=== PATIENT | male | born 1960 | race Caucasian/White ===

== ENCOUNTER → 2016-06-06 | Outpatient (CLI) | payer OTHER ==
[2016-06-06 16:48] LABS: CH 29.5; CHCM 33.5; HCT 46.3 % (39.0-53.0); HDW 2.82; HGB 15.3 gm/dL (13.0-17.5); MCH 29.3 pg (25.0-35.0); MCV 88.7 fL (80.0-100.0); Mean Platelet Volume 8.2; RBC 5.21 m/uL (4.30-5.90); RDW 13.8 % (11.5-15.5)
[2016-06-06 16:56] LABS: Anion Gap 10 mmol/L; Blood Urea Nitrogen 22 mg/dL (9-20); Carbon Dioxide 28 mmol/L (22-30); Chloride 104 mmol/L (98-107); Non-African American GFR(MDRD) >60 (>60 ml/min/1.73 sqM); Potassium 4.5 mmol/L (3.5-5.1); Sodium 142 mmol/L (137-145)
== END | disposition home or self-care (01) ==
LOC: LABPAT 16:08
PROVIDERS: ATTEND Internal Medicine Cardiovascular Disease
DX: Z01.812 Encounter for preprocedural laboratory examination (principal); I48.1 Persistent atrial fibrillation
CPT/HCPCS: 80051; 82565; 84520; 85027

== ENCOUNTER 2016-06-13 06:25 | Day surgery (SDC) | payer OTHER ==
[2016-06-10 11:27] VITALS: BMI 41.4
[2016-06-13] MEDS ORDERED: LACTATED RINGERS 1,000 ML IV SCH ×2 (06:28→17:58)
[2016-06-13 07:20] LABS: INR 2.6 (<1.1)
[2016-06-13] MEDS ORDERED: ACETAMINOPHEN TAB 325 MG TAB PO PRN (07:58)
--- NOTE | 2016-06-13 08:02 | P.PCN ---
Date of Procedure: 06/13/16 Preoperative Diagnosis: Atrial fibrillation Postoperative Diagnosis: The same Procedure(s) Performed: Cardioversion Description of Procedure: This 54-year-old gentleman with history of hypertension was recently diagnosed to have atrial fibrillation. Patient was adequately anticoagulated and was brought in for elective cardioversion. Patient was prepped and draped in the usual fashion. He was given IV sedation by department of anesthesia. Patient was given shocks of 300 J followed by 360 J 2 with synchronized shocks. Patient failed to convert to sinus rhythm. Patient is being admitted to the hospital. He is going to be started on record 150 mg by mouth twice a day. Repeat cardioversion to be scheduled tomorrow a.m. Unsuccessful attempt at cardioversion.
[2016-06-13] MEDS ORDERED: SODIUM CHLORIDE 0.9% 1,000 ML IV ONE (08:32)
[2016-06-13] MEDS: FLECAINIDE 50 MG TAB PO SCH ×2 (09:29→20:18)
[2016-06-13] MEDS: SODIUM CHLORIDE 0.9% 1,000 ML IV SCH (09:31)
[2016-06-13] MEDS: METOPROLOL TARTRATE 25 MG TAB PO SCH ×2 (09:32→20:18)
[2016-06-13] MEDS ORDERED: MIDAZOLAM 2 MG/2 ML VIAL IV PRN (17:58)
[2016-06-13] MEDS ORDERED: DEXAMETHASONE SOD PHOSPHATE 10 MG/ML 1 ML VIAL IV ONE (17:58)
[2016-06-13] MEDS ORDERED: ONDANSETRON 4 MG/2 ML VIAL IVP ONE (17:58)
[2016-06-13] MEDS ORDERED: HYDROmorphone 1 MG/ML 1 ML SYRINGE IVP PRN (17:58)
[2016-06-13] MEDS ORDERED: SCOPOLAMINE 1.5MG/72HR PATCH TRANSDERM ONE (17:58)
[2016-06-13] MEDS ORDERED: WARFARIN 10 MG TAB PO SCH (18:00)
[2016-06-13] MEDS ORDERED: ATORVASTATIN 10 MG TAB PO SCH (21:00)
[2016-06-14 06:51] LABS: INR 3.2 (<1.1); Prothrombin Time 30.8 sec (9.0-12.0)
[2016-06-14] MEDS ORDERED: LIDOCAINE 1% INJ 10MG/ML (20 ML MDV) ONE (08:10)
[2016-06-14] MEDS ORDERED: PROPOFOL 10 MG/ML 20 ML VIAL IV ONE (08:10)
[2016-06-14] MEDS ORDERED: IV FLUID CONTINUATION 1,000 ML IV ONE ×2 (08:12→08:21)
--- NOTE | 2016-06-14 08:18 | P.PCN ---
Date of Procedure: 06/14/16 Preoperative Diagnosis: Persistent atrial fibrillation Postoperative Diagnosis: The same Procedure(s) Performed: Cardioversion Description of Procedure: This 55-year-old gentleman with history of persistent atrial fibrillation was brought in for cardioversion as an outpatient yesterday. Attempts at cardioversion with the shocks was unsuccessful yesterday. Patient was put on flecainide 150 twice a day and is brought in for repeat attempt at cardioversion. Patient was prepped and draped in the usual fashion. He was given IV sedation by department of anesthesia. A single a shock of 300 J was applied without success. Patient remained in atrial fibrillation. At this point it was decided to abandon the procedure Final impression: Unsuccessful attempt at cardioversion Plan. Patient will be continued on current medical therapy. Continue anticoagulation. Follow-up in the office in one week.
[2016-06-14] MEDS: FLECAINIDE 50 MG TAB PO SCH (09:01)
[2016-06-14] MEDS: METOPROLOL TARTRATE 25 MG TAB PO SCH (09:01)
[2016-06-14 11:55] VITALS: BP 127/76; PULSE 46; RESP 16; TEMP 97.5
[2016-06-14] MEDS: SODIUM CHLORIDE 0.9% 1,000 ML IV SCH (12:13)
[2016-06-14] MEDS ORDERED: WARFARIN 7.5 MG TAB PO SCH (18:00)
== END 2016-06-14 12:38 | disposition home or self-care (01) ==
LOC: CATHCVL 06:25 → 3OBS 07:53 → CATHCVL 06-14 12:38
PROVIDERS: ATTEND Internal Medicine Cardiovascular Disease
DX: I48.1 Persistent atrial fibrillation (principal); E78.5 Hyperlipidemia, unspecified; I10 Essential (primary) hypertension; E78.00 Pure hypercholesterolemia, unspecified; I42.9 Cardiomyopathy, unspecified; Z79.01 Long term (current) use of anticoagulants; Z79.899 Other long term (current) drug therapy; Z91.013 Allergy to seafood
CPT/HCPCS: 92960 ×2; 85610 ×2; J2001; J2704; 99152

== ENCOUNTER → 2016-08-14 | Outpatient (CLI) | payer OTHER ==
--- NOTE | 2016-08-14 18:29 | US ---
EXAMINATION TYPE: US kidneys/renal and bladder DATE OF EXAM: 08/14/2016 6:18 PM COMPARISON: NONE CLINICAL HISTORY: R31.9 Hematuria. EXAM MEASUREMENTS: Right Kidney: 13.2 x 6.5 x 6.1 cm Left Kidney: 13.3 x 5.8 x 5.7 cm Post Void Residual Volume: 9.0 mL Right Kidney: No hydronephrosis or masses seen Left Kidney: No hydronephrosis or masses seen Bladder: Bladder wall appears thickened and measures 0.5 cm Bilateral Jets seen: Yes Normal Post Void Residual: Yes There is no evidence for hydronephrosis at this point in time. No nephrolithiasis is seen. No kristal s are identified. The urinary bladder is anechoic. Bilateral ureteral jets are seen. IMPRESSION: No evidence of renal mass or obstruction. Satisfactory bladder emptying. Urinary bladder wall is prom inent but could relate to nonspecific mild cystitis.
== END | disposition home or self-care (01) ==
LOC: RADUSMAIN 17:52
PROVIDERS: ATTEND Internal Medicine
DX: R31.9 Hematuria, unspecified (principal)
CPT/HCPCS: 76770

== ENCOUNTER → 2017-11-01 | Outpatient (CLI) | payer OTHER | END | disposition home or self-care (01) | LOC: RADMRIMAIN 10:17 | PROVIDERS: ATTEND Orthopaedic Surgery | DX: Z53.9 Procedure and treatment not carried out, unspecified reason (principal) ==

== ENCOUNTER → 2018-01-02 | Outpatient (CLI) | payer OTHER ==
[2018-01-02 09:33] LABS: Appearance,Urine Clear (Clear); Bilirubin,Urine Negative (Negative); Blood,Urine Moderate (Negative); Color,Urine Yellow; Glucose,Urine (UA) Negative (Negative); Ketones,Urine Negative (Negative); Leukocyte Esterase,Urine Negative (Negative); Mucus,Urine Rare /hpf; Nitrite,Urine Negative (Negative); Protein,Urine Trace (Negative); RBC,Urine <1 /hpf (0-5); Specific Gravity,Urine 1.017 (1.001-1.035); Squamous Epithelial Cell,Urine <1 /hpf (0-4); Urobilinogen,Urine <2.0 mg/dL (<2.0); WBC,Urine <1 /hpf (0-5)
[2018-01-02 09:46] LABS: HCT 47.1 % (39.0-53.0); HGB 14.8 gm/dL (13.0-17.5); MCH 28.1 pg (25.0-35.0); MCHC 31.5 g/dL (31.0-37.0); MCV 89.4 fL (80.0-100.0); Platelet Count 268 k/uL (150-450); RBC 5.27 m/uL (4.30-5.90); RDW 13.5 % (11.5-15.5); WBC 6.3 k/uL (3.8-10.6)
[2018-01-02 09:57] LABS: INR 2.1 (<1.2); Partial Thromboplastin Time 26.6 sec (22.0-30.0); Prothrombin Time 18.7 sec (9.0-12.0)
[2018-01-02 10:54] LABS: ALT 37 U/L (21-72); AST 31 U/L (17-59); Albumin 4.2 g/dL (3.5-5.0); Alkaline Phosphatase 58 U/L (38-126); Anion Gap 9 mmol/L; Blood Urea Nitrogen 19 mg/dL (9-20); Calcium 9.2 mg/dL (8.4-10.2); Carbon Dioxide 27 mmol/L (22-30); Chloride 104 mmol/L (98-107); Glucose 148 mg/dL (74-99); Potassium 4.9 mmol/L (3.5-5.1); Sodium 140 mmol/L (137-145); Total Bilirubin 0.5 mg/dL (0.2-1.3); Total Protein 7.1 g/dL (6.3-8.2)
== END | disposition home or self-care (01) ==
LOC: LABPAT 08:31
PROVIDERS: ATTEND Orthopaedic Surgery
DX: Z01.812 Encounter for preprocedural laboratory examination (principal)
CPT/HCPCS: 36415; 80053; 81001; 85027; 85610; 85730; 86850; 86900; 86901; 87070; 93005

== ENCOUNTER 2018-01-13 05:41 | Inpatient (IN) | payer OTHER ==
[2018-01-05 09:08] VITALS: BMI 41.0
[~2018-01-13 05:41] MED LIST: ACETAMINOPHEN TAB 500 MG TAB PO ONE; DEXAMETHASONE SOD PHOSPHATE 10 MG/ML 1 ML VIAL IV ONE; LIDOCAINE 1% 20 ML VIAL (10MG/ML) FOR IV START INTRADERMA PRN; MELOXICAM 7.5 MG TAB PO ONE; MIDAZOLAM 2 MG/2 ML VIAL IV PRN; ONDANSETRON 4 MG/2 ML VIAL IVP ONE; TRANEXAMIC ACID 1,000 MG in SODIUM CHLORIDE 0.9% 50 ML IVPB ONE; fentaNYL (PF) 50 MCG/ML 2 ML AMP IV PRN
[2018-01-13] MEDS ORDERED: ROPIVACAINE 246.25 MG, EPINEPHrine 0.5 MG, KETOROLAC 30 MG, cloNIDine HCL/PF 80 MCG, WA... MISCELLANE ONE ×5 (05:55)
[2018-01-13 06:31] LABS: Glucose,Whole Blood 168 mg/dL (75-99)
[2018-01-13] MEDS: LACTATED RINGERS 1,000 ML IV SCH (06:32)
[2018-01-13] MEDS ORDERED: MAGNESIUM HYDROXIDE 2,400 MG/10 ML CUP PO PRN (07:00)
[2018-01-13] MEDS ORDERED: HYDROmorphone 1 MG/ML 1 ML SYRINGE IVP PRN ×3 (07:00)
[2018-01-13] MEDS ORDERED: DIAZEPAM 5 MG TAB PO PRN ×2 (07:00)
[2018-01-13] MEDS ORDERED: NALOXONE 0.4 MG/ML 1 ML VIAL IV PRN (07:00)
[2018-01-13] MEDS ORDERED: HYDROcodone/APAP 5-325MG 1 EACH TAB PO PRN (07:00)
[2018-01-13] MEDS ORDERED: ONDANSETRON 4 MG/2 ML VIAL IVP PRN (07:00)
[2018-01-13 07:05] LABS: INR 1.1 (<1.2); Prothrombin Time 10.5 sec (9.0-12.0)
[2018-01-13] MEDS ORDERED: PHENYLEPHRINE-0.9% NACL SYG 1 MG/10 ML SYRINGE ONE (07:08)
[2018-01-13] MEDS ORDERED: SODIUM CHLORIDE 0.9% 100 ML BAG ONE (07:08)
[2018-01-13] MEDS ORDERED: fentaNYL (PF) 50 MCG/ML 2 ML AMP ONE (07:08)
[2018-01-13] MEDS ORDERED: TRANEXAMIC ACID 1,000 MG/10 ML VIAL ONE (07:08)
[2018-01-13] MEDS ORDERED: ceFAZolin 3,000 MG in SODIUM CHLORIDE 0.9% IRRIGATIO 3,000 ML IRRIGATION ONE (07:08)
[2018-01-13] MEDS ORDERED: diphenhydrAMINE 50 MG/ML 1 ML VIAL ONE (07:08)
[2018-01-13] MEDS ORDERED: MIDAZOLAM 2 MG/2 ML VIAL ONE (07:08)
[2018-01-13] MEDS ORDERED: ceFAZolin 3 GM in SODIUM CHLORIDE 0.9% 100 ML IVPB SCH (08:00)
[2018-01-13] MEDS ORDERED: LACTATED RINGERS 1,000 ML IV ONE (09:08)
--- NOTE | 2018-01-13 09:25 | P.OP ---
Date of Procedure: 01/13/18 Preoperative Diagnosis: Avascular necrosis left hip Postoperative Diagnosis: Avascular necrosis left hip Procedure(s) Performed: Left total hip arthroplasty with a direct anterior approach Implants: Ochoa and nephew Polarstem size 8 standard Ochoa [employer] Nephew R3, 3 hole acetabular shell, 56 mm [employer]choa [employer]hew reflection 6.5 mm cancellus screw, 20 mm 2 [employer]cho[employer]hew R3, XLPE 20 acetabular liner [employer]choa [employer] Nephew Oxinium femoral head 36 m, +0 All components were press-fit. The articulation is Oxinium on polyethylene. Anesthesia: spinal Surgeon: Chetan Jacinto Director Loan #1: Jess Cheung Estimated Blood Loss (ml): 150 (68 mL returned with Cell Saver) Pathology: other (Femoral head) Condition: stable Disposition: PACU Indications for Procedure: After failure of conservative treatment we discussed the surgical and nonsurgical treatment options at length. Patient wishes to proceed with a total hip arthroplasty with a direct anterior approach. Complications specific to this procedure were discussed at length, including but not limited to infection, leg length discrepancy, dislocation, and nerve injury. Patient is aware of all these complications and informed consent was obtained Operative Findings: Operative findings are consistent with severe avascular necrosis of the left hip Description of Procedure: Patient was seen and evaluated in the preoperative area, consent was reviewed, and the surgical site was marked with a skin marker. Patient was then brought to the operating room and given prophylactic antibiotics intravenously. 1 g of Tranexamic acid was also given. A spinal anesthetic was administered by the anesthesia department. The patient was then placed on the Umbarger table with the bony prominences well-padded. The hip area was then prepped and draped in usual sterile fashion. A universal timeout was then performed, which confirmed the patient's name, surgical site, ALLERGIES, and procedure being performed. Next the incision site was located at 1 cm distal and 1 cm lateral to the anterior superior iliac spine. The skin and subcutaneous tissues were sharply incised. Incision was carefully dissected down to the fascia overlying the tensor fascia kavya muscle. This fascia was then incised in line with the incision. Next, using blunt finger dissection, the tensor fascia kavya muscle was dissected off its investing fascia. The muscle was then carefully retracted laterally with a cobra retractor over the lateral neck of the femur. Next, the circumflex vessels were identified and cauterized using the AquaMantis device. The anterior hip capsule was then exposed. The capsule was then opened and an inverted T fashion. Cobra retractors were then placed intracapsularly. The proximal femur was then visualized. The femoral neck was then osteotomized appropriate level above the lesser trochanter. Small amount of traction was placed with the Umbarger table. A small wedge of bone was then removed from the remaining femoral head. Next, using a corkscrew femoral head was easily removed from the acetabulum. On gross visual inspection, the femoral head had complete loss of articular cartilage in multiple periarticular osteophytes. Attention was then turned to the acetabulum. the acetabulum was exposed and any remaining labrum was excised. Sequential reaming of the acetabulum was performed using fluoroscopic guidance. When the appropriate size was reached, a trial was then placed. The position and fit of the trial was checked with fluoroscopy. The trial was then removed. Then, using fluoroscopic guidance, the final implant was impacted at 20 of anteversion and 40 of abduction, and fully seated in the acetabulum. 2 screws were then placed in the acetabulum. Again fluoroscopy was used to check position of the screws. Next, the liner was then impacted, with a 20 elevated liner located in the anterior superior quadrant. Component locking was confirmed. Attention was then directed to the femur. With the aid of the Umbarger table, the femur was externally rotated to approximately 130, extended, and abducted under the opposite leg. A side hook was then placed under the proximal femur, and the side hook elevator was used to elevate the proximal femur. Retractors were then placed. A capsular release was performed, as well as a release of the conjoined tendon, which afforded excellent visualization of the proximal femur. Next, a box osteotome was used to lateralize the proximal femur. A hand iii cutter was then used to locate the femoral canal. Sequential broaching was then performed with appropriate size which afforded excellent fixation in the proximal femur. A trial was then placed with appropriate head and neck, and the hip was gently reduced with the aid of the Umbarger table. Fluoroscopy was then used to check position of the components, as well as to ensure equal leg lengths. The hip was then gently dislocated and the trials were then removed. Final implants were then impacted and the hip was again reduced. Final fluoroscopic x-rays confirmed that the components were in anatomic position, as well as equal leg lengths. The hip was also taken through range of motion, and found to be stable. The hip was then copiously irrigated with antibiotic solution with pulsatile lavage. The hip was then irrigated with Irrisept solution. The soft tissues were then injected with a ropivacaine solution, which consisted of 246.25 mg of ropivacaine, 0.5 mg of epinephrine, 30 mg of Toradol, 80 g of clonidine, and 48.45 mL of sterile water, for a total of 100 mL of fluid injected. A second dose of 1 g of Tranexamic acid was also given. the fascia was then closed with 2-0 strata fix suture. The subcutaneous tissue was closed with 3-0 Vicryl. The subcuticular tissue was closed with 3-0 strata fix suture. The skin was then closed with Dermabond glue and a sterile silver dressing. The patient was then transferred to the recovery room in stable condition. The assistant passenger locomotive engineer MEGHAN Rosario was required due to the complexity of surgery, and the need for skilled patient services assistant for positioning, draping, exposure, retraction, and closure of the wound.
[2018-01-13 09:41] LABS: Glucose,Whole Blood 176 mg/dL (75-99)
--- NOTE | 2018-01-13 09:49 | XR ---
EXAMINATION TYPE: XR Hip Limited LT DATE OF EXAM: 01/13/2018 COMPARISON: None HISTORY: Postop hip replacement TECHNIQUE: AP left hip FINDINGS: Femoral component and acetabular component placed. No acute fractures are evident. IMPRESSION: 1. No fracture post left hip replacement.
--- NOTE | 2018-01-13 10:04 | FL ---
Fluoroscopy INDICATION: Pain FINDINGS: Fluoroscopy time: 1 minute 29 seconds. Images obtained: 3. IMPRESSIONS: 1. Documentation of fluoroscopy.
[2018-01-13] MEDS: HYDROcodone/APAP 5-325MG 1 EACH TAB PO PRN ×3 (10:58→23:23)
[2018-01-13] MEDS: SODIUM CHLORIDE 0.9% 1,000 ML IV SCH ×2 (11:17→21:22)
[2018-01-13 12:07] LABS: Glucose,Whole Blood 216 mg/dL (75-99)
[2018-01-13] MEDS ORDERED: INSULIN ASPART 100 UNIT/ML 1 ML 10 ML VIAL SQ ONE (14:31)
[2018-01-13 14:38] LABS: Glucose,Whole Blood 257 mg/dL (75-99)
[2018-01-13] MEDS: metFORMIN 500 MG TAB PO SCH (15:20)
--- NOTE | 2018-01-13 16:27 | CONS ---
CONSULTATION REASON FOR CONSULTATION: Advice regarding diabetes mellitus and other medical issues, requested by Dr. Jacinto. HISTORY OF PRESENT ILLNESS: This 57-year-old gentleman with a past medical history of atrial fibrillation, history of diabetes mellitus, hypertension, hyperlipidemia, myocardial infarction, history of mitral valve prolapse, DJD, history of pneumonia, underwent left total hip arthroplasty with a direct anterior approach for avascular necrosis of the left hip. The patient is being closely monitored. Blood sugars is being also monitored at this time. Blood sugars are 168, 176 and 216. There is no history of any fever or rigors, no history of headache, loss of consciousness, seizures at this time. The patient is followed by Dr. Mello in the outpatient setting. PAST MEDICAL HISTORY: 1. Atrial fibrillation. 2. Diabetes. 3. Hypertension. 4. Hyperlipidemia. 5. History of myocardial infarction. 6. Mitral valve prolapse. 7. DJD. MEDICATIONS PRIOR TO ADMISSION: 1. Coumadin 10 mg p.o. Friday, Friday, . 2. Coumadin 7.5 mg Friday, Friday, Friday, Friday. 3. Glucophage 500 mg each morning. 4. [place]-3 fatty acids 1 p.o. daily. 5. Lopressor 25 mg p.o. b.i.d. 6. Motrin 1600 mg p.o. daily p.r.n. 7. Lipitor 20 mg at bedtime. ALLERGIES: SHELLFISH. FAMILY HISTORY: History of cancer in the family. SOCIAL HISTORY: No history of smoking. Occasional alcohol intake. REVIEW OF SYSTEMS: ENT: No diminished hearing. No diminished vision. CARDIOVASCULAR SYSTEM: No angina, palpitations. RESPIRATORY SYSTEM: As mentioned earlier. GI: As mentioned earlier. : No dysuria or retention. NERVOUS SYSTEM: No numbness, weakness. ALLERGY/IMMUNOLOGY: No asthma, hayfever. MUSCULOSKELETAL: As mentioned earlier. HEMATOLOGY/ONCOLOGY: No history of anemia. ENDOCRINE: Diabetes mellitus. CONSTITUTIONAL: As mentioned earlier. DERMATOLOGY: Negative. RHEUMATOLOGY: Negative. PSYCHIATRY: As mentioned earlier. PHYSICAL EXAMINATION: Alert and oriented x3. Pulse is 59, blood pressure 160/60, respiration 20, temperature normal, pulse ox 97% on room air. HEENT: Conjunctivae normal. Oral mucosa moist. NECK: No jugular venous distention. No carotid bruit. No lymph node enlargement. CARDIOVASCULAR SYSTEM: S1, S2 muffled. RESPIRATORY SYSTEM: Breath sounds diminished at the bases. No rhonchi. No crackles. ABDOMEN: Soft, non-tender. No mass palpable. LEGS: Status post right hip surgery. NERVOUS SYSTEM: Higher functions as mentioned earlier. Moves all 4 limbs. No focal motor or sensory deficit. LYMPHATICS: No lymph node palpable in neck, axillae or groin. SKIN: No ulcer, rash, bleeding. LABS: Accu-Cheks 168, 176, 216. Previous labs are reviewed. ASSESSMENT: 1. Status post left total hip joint arthroplasty for avascular necrosis of the left hip. 2. Diabetes mellitus, type 2. 3. Atrial fibrillation. 4. Coumadin monitoring. 5. Hypertension. 6. Hyperlipidemia. 7. History of myocardial infarction. 8. History of degenerative joint disease. 9. History of pneumonia. 10.Migraines. 11.History of pituitary tumor removal. 12.History of bilateral degenerative joint disease. RECOMMENDATIONS AND DISCUSSION: In this 57-year-old gentleman who presented with multiple complex medical issues, we will monitor the patient closely, continue the current medications, continue with symptomatic treatment. Otherwise at this time I recommend continuing with orthopedic Coumadin protocol and monitor PT/INR closely. The patient may be discharged home on the home dose of Coumadin. Otherwise I would recommend initiating metformin as well as instituting Accu-Cheks before meals and scale also. DVT prophylaxis. Incentive spirometry. We will follow the patient closely with you. The patient may be asked to follow up with primary physician closely after discharge. Thank you, Dr. Jacinto, for letting us participate in the care of this patient. MMODL / IJN: [id number] /
[2018-01-13] MEDS: hydrOXYzine PAMOATE 25 MG CAP PO PRN ×2 (17:00→23:22)
[2018-01-13 17:21] LABS: Glucose,Whole Blood 177 mg/dL (75-99)
[2018-01-13] MEDS ORDERED: WARFARIN 10 MG TAB PO ONE (18:00)
[2018-01-13] MEDS: INSULIN ASPART 100 UNIT/ML 1 ML 10 ML VIAL SQ SCH ×2 (18:15→20:16)
[2018-01-13 19:59] LABS: Glucose,Whole Blood 211 mg/dL (75-99)
[2018-01-13] MEDS: METOPROLOL TARTRATE 25 MG TAB PO SCH (20:16)
[2018-01-13] MEDS ORDERED: SENNOSIDES-DOCUSATE SODIUM 1 EACH TAB PO SCH (21:00)
[2018-01-13] MEDS ORDERED: ATORVASTATIN 20 MG TAB PO SCH (21:00)
[2018-01-14] MEDS: LACTATED RINGERS 1,000 ML IV SCH (04:40)
[2018-01-14] MEDS: HYDROcodone/APAP 5-325MG 1 EACH TAB PO PRN ×2 (06:49→13:00)
[2018-01-14] MEDS: hydrOXYzine PAMOATE 25 MG CAP PO PRN ×2 (06:50→13:01)
[2018-01-14 07:02] LABS: Glucose,Whole Blood 192 mg/dL (75-99)
[2018-01-14 07:07] LABS: Basophils % (A) 0 %; Eosinophils % (A) 0 %; HCT 40.3 % (39.0-53.0); HGB 13.2 gm/dL (13.0-17.5); Lymphocytes # (A) 1.7 k/uL (1.0-4.8); Lymphocytes % (A) 16 %; MCH 29.1 pg (25.0-35.0); MCHC 32.8 g/dL (31.0-37.0); MCV 88.7 fL (80.0-100.0); Mean Platelet Volume 7.7; Monocytes # (A) 0.8 k/uL (0-1.0); Monocytes % (A) 7 %; Neutrophils # (A) 7.8 k/uL (1.3-7.7); Neutrophils % (A) 74 %; Platelet Count 252 k/uL (150-450); RBC 4.55 m/uL (4.30-5.90); RDW 13.7 % (11.5-15.5); WBC 10.5 k/uL (3.8-10.6)
[2018-01-14 07:10] LABS: INR 1.1 (<1.2); Prothrombin Time 10.9 sec (9.0-12.0)
[2018-01-14 07:13] VITALS: BP 122/86; PULSE 74; RESP 16; TEMP 98.3
--- NOTE | 2018-01-14 08:56 | P.DS ---
Providers Date of admission: 01/13/18 05:41 Expected date of discharge: 01/14/18 Attending physician: Chetan Jacinto Consults: 01/13/18 07:00 Consult Physician Routine Consulting Provider: Roberto Lewis Consult Reason/Comments: medical management and anticoagulation Do you want consulting provider notified?: Yes Primary care physician: Funmilayo Valdez Charbal - Discharge Diagnosis(es) (1) S/P total hip arthroplasty Current Visit: Yes Status: Acute (2) Avascular necrosis of bone of left hip Current Visit: Yes Status: Acute Hospital Course: This is a 57-year-old male with known history of avascular necrosis of the left hip. The patient presents for evaluation. After discussion and consideration patient elects to proceed with total hip arthroplasty. The patient is seen preoperatively by Dr. Jacinto and medically cleared for surgery by their primary care physician. Patient is admitted to [facility] on 01/13/2018 for total hip arthroplasty. The procedures performed without complication or sequelae. The patient is doing well postoperatively. Labs and vital signs are stable on day of discharge. On day of discharge patient's hip incision is healing well. There is minimal erythema. There is no drainage noted at this time. There is minimal soft tissue swelling to the hip and thigh. Patient has full foot and ankle motion without difficulty or pain. Neurovascular status to the left lower extremity is intact. Patient is discharged home in good condition. Please see med rec for accurate list of home medications. Plan - Discharge Summary Discharge Rx Participant: Yes New Discharge Prescriptions: New HYDROcodone/APAP 5-325MG [[place] 5-325] 1 - 2 tab PO Q4-6H PRN #84 tab PRN Reason: Pain Sennosides [Senokot] 1 tab PO BID #60 tablet No Action Metoprolol Tartrate [Lopressor] 25 mg PO BID metFORMIN HCL [Glucophage] 500 mg PO QAM Atorvastatin Calcium [Lipitor] 20 mg PO HS Warfarin [Coumadin] 7.5 mg PO MOWEFRSA Warfarin [Coumadin] 10 mg PO SUTUTH Ibuprofen [Motrin Ib] 1,600 tab PO DAILY PRN PRN Reason: Pain [place]-3 Fatty Acids/Fish Oil [Fish Oil 1,000 mg Softgel] 1 cap PO DAILY Discharge Medication List Metoprolol Tartrate [Lopressor] 25 mg PO BID 06/10/16 [History] Atorvastatin Calcium [Lipitor] 20 mg PO HS 01/05/18 [History] Ibuprofen [Motrin Ib] 1,600 tab PO DAILY PRN 01/05/18 [History] [place]-3 Fatty Acids/Fish Oil [Fish Oil 1,000 mg Softgel] 1 cap PO DAILY [History] Warfarin [Coumadin] 7.5 mg PO MOWEFRSA 01/05/18 [History] Warfarin [Coumadin] 10 mg PO SUTUTH 01/05/18 [History] metFORMIN HCL [Glucophage] 500 mg PO QAM 01/05/18 [History] HYDROcodone/APAP 5-325MG [[place] 5-325] 1 - 2 tab PO Q4-6H PRN #84 tab 01/14/18 [ Rx] Sennosides [Senokot] 1 tab PO BID #60 tablet 01/14/18 [Rx] Follow up Appointment(s)/Referral(s): Chetan Jacinto DO [Doctor of Osteopathic Medicine] - 2 Weeks Activity/Diet/Wound Care/Special Instructions: Weightbearing as tolerated with walker Leave dressing intact. Dressing may be removed by home care nurse in 10 days. May shower with dressing on. Follow-up with [facility] in 2 weeks, please call with any questions or concerns [phone] Discharge Disposition: HOME WITH HOME HEALTH SERVICES
[2018-01-14] MEDS: INSULIN ASPART 100 UNIT/ML 1 ML 10 ML VIAL SQ SCH ×2 (08:58→13:02)
[2018-01-14] MEDS: METOPROLOL TARTRATE 25 MG TAB PO SCH (08:59)
[2018-01-14] MEDS: metFORMIN 500 MG TAB PO SCH (08:59)
[2018-01-14] MEDS ORDERED: metFORMIN 500 MG TAB PO SCH (09:00)
[2018-01-14 11:25] LABS: Glucose,Whole Blood 187 mg/dL (75-99)
--- NOTE | 2018-01-14 14:20 | P.PN ---
Subjective Patient is clinically doing well and okay to discharged from medical perspective did review the discharge medication reconciliation no further changes are being made with blood sugars are bit elevated can be titrated as an outpatient. Objective - Vital Signs Vital signs: Vital Signs Temp 98.3 F 01/14/18 07:12 Pulse 74 01/14/18 07:12 Resp 16 01/14/18 07:12 BP 122/86 01/14/18 07:12 Pulse Ox 95 01/14/18 07:12 Intake & Output 01/13/18 01/14/18 01/14/18 18:59 06:59 18:59 Intake Total 1871 1002 180 Output Total 150 Balance 1721 1002 180 Weight 141.067 kg 141.067 kg Intake: IV 1351 Intake, IV Titration 520 Amount Sodium Chloride 0.9% 1, 520 000 ml @ 65 mls/hr IV . [id number] TAMI Rx#:[id number] Oral 1002 180 Output: Estimated Blood Loss 150 Other: # Voids 1 2 - Exam PHYSICAL EXAMINATION: GENERAL: The patient is alert and oriented x3, not in any acute distress. Obese HEENT: Pupils are round and equally reacting to light. EOMI. No scleral icterus. No conjunctival pallor. Normocephalic, atraumatic. No pharyngeal erythema. No thyromegaly. CARDIOVASCULAR: S1 and S2 present. No murmurs, rubs, or gallops. PULMONARY: Chest is clear to auscultation, no wheezing or crackles. ABDOMEN: Soft, nontender, nondistended, normoactive bowel sounds. No palpable organomegaly. MUSCULOSKELETAL: Deferred to orthopedic surgery EXTREMITIES: No cyanosis, clubbing, or pedal edema. NEUROLOGICAL: Gross neurological examination did not reveal any focal deficits. SKIN: No rashes. - Labs CBC & Chem 7: 01/14/18 06:24 Labs: Abnormal Lab Results - Last 24 Hours (Table) 01/13/18 01/13/18 01/13/18 Range/Units 14:37 17:17 19:57 Neutrophils # (1.3-7.7) k/uL POC Glucose (mg/dL) 257 H 177 H 211 H (75-99) mg/dL 01/14/18 01/14/18 01/14/18 Range/Units 06:24 07:00 11:23 Neutrophils # 7.8 H (1.3-7.7) k/uL POC Glucose (mg/dL) 192 H 187 H (75-99) mg/dL Assessment and Plan Plan: -Status post left hip arthroplasty for a vascular necrosis of the left hip: Pain management due to prophylaxis per primary service -Paroxysmal atrial fibrillation presently rate controlled being resumed on anticoagulation with Coumadin repeat INR as an outpatient in about 3 days -Hypertension -Hyperlipidemia Heparin coronary artery disease -Obesity, degenerative joint disease from primary osteoarthritis -History of migraine Patient can be discharged from medical perspective
[2018-01-14 14:38] LABS: Hemoglobin A1C 7.3 % (4.0-6.0)
[2018-01-14] MEDS: SODIUM CHLORIDE 0.9% 1,000 ML IV SCH (14:43)
[2018-01-14] MEDS ORDERED: WARFARIN 10 MG TAB PO ONE (18:00)
== END 2018-01-14 14:53 | disposition home health service (06) | DRG 470 ==
LOC: 2ORMAIN 05:41 → 3SUR 09:53
PROVIDERS: ADMIT Orthopaedic Surgery; ATTEND Orthopaedic Surgery
PROC: 0SRB06A Replacement of Left Hip Joint with Oxidized Zirconium on Polyethylene Synthetic Substitute, Uncemented, Open Approach (ICD-10-PCS; principal; 2018-01-13 07:00)
DX: M87.9 Osteonecrosis, unspecified (principal); Z68.41 Body mass index [BMI] 40.0-44.9, adult; E11.9 Type 2 diabetes mellitus without complications; E78.5 Hyperlipidemia, unspecified; G43.909 Migraine, unspecified, not intractable, without status migrainosus; I10 Essential (primary) hypertension; I25.2 Old myocardial infarction; I34.1 Nonrheumatic mitral (valve) prolapse; I48.0 Paroxysmal atrial fibrillation; Z79.01 Long term (current) use of anticoagulants; M19.91 Primary osteoarthritis, unspecified site; Z79.84 Long term (current) use of oral hypoglycemic drugs; Z79.899 Other long term (current) drug therapy; Z80.9 Family history of malignant neoplasm, unspecified; Z87.01 Personal history of pneumonia (recurrent); E66.9 Obesity, unspecified
CPT/HCPCS: 73501; 83036; 85025; 85610; 86850; 86891; 86900; 86901; 88305; 88311

== ENCOUNTER 2021-03-11 03:02 | Emergency (ER) | payer OTHER ==
[2021-03-11 03:08] VITALS: RESP 18
[2021-03-11] MEDS ORDERED: IBUPROFEN 800 MG TAB PO STA (03:17)
[2021-03-11] MEDS ORDERED: HYDROcodone/APAP 5-325MG 1 EACH TAB PO STA (03:17)
[2021-03-11] MEDS ORDERED: SULFAMETHOX-TMP 800-160MG 1 EACH TAB PO STA (03:17)
[2021-03-11] MEDS ORDERED: AMOXIC-POT CLAV 875-125MG 1 EACH TAB PO STA (03:17)
--- NOTE | 2021-03-11 03:18 | ED ---
Skin/Abscess/FB HPI - General Chief complaint: Skin/Abscess/Foreign Body Stated complaint: Groin Pain Time Seen by Provider: 03/11/21 03:04 Source: patient Mode of arrival: ambulatory Limitations: no limitations - Related Data Home Medications Medication Instructions Recorded Confirmed Metoprolol Tartrate [Lopressor] 25 mg PO BID 06/10/16 01/13/18 Atorvastatin Calcium [Lipitor] 20 mg PO HS 01/05/18 01/13/18 Ibuprofen [Motrin Ib] 1,600 tab PO DAILY PRN 01/05/18 01/13/18 [place]-3 Fatty Acids/Fish Oil [Fish 1 cap PO DAILY 01/05/18 01/13/18 Oil 1,000 mg Softgel] Warfarin [Coumadin] 7.5 mg PO MOWEFRSA 01/05/18 01/13/18 Warfarin [Coumadin] 10 mg PO SUTUTH 01/05/18 01/13/18 metFORMIN HCL [Glucophage] 500 mg PO QAM 01/05/18 01/13/18 Previous Rx's Medication Instructions Recorded HYDROcodone/APAP 5-325MG [[place] 1 - 2 tab PO Q4-6H PRN #84 tab 01/14/18 5-325] Sennosides [Senokot] 1 tab PO BID #60 tablet 01/14/18 Allergies Allergy/AdvReac Type Severity Reaction Status Date / Time shellfish derived Allergy Dyspnea, Verified 03/11/21 03:08 eye and throat swelling Review of Systems ROS Statement: Those systems with pertinent positive or pertinent negative responses have been documented in the HPI. ROS Other: All systems not noted in ROS Statement are negative. Past Medical History Past Medical History: Atrial Fibrillation, Diabetes Mellitus, Hyperlipidemia, Hypertension, Myocardial Infarction (AR), Mitral Valve Prolapse (MVP), Osteoarthritis (OA), Pneumonia Additional Past Medical History / Comment(s): hx migraines, hiatal hernia, Last Myocardial Infarction Date:: unknown History of Any Multi-Drug Resistant Organisms: None Reported Past Surgical History: Appendectomy, Hernia Repair, Joint Replacement, Orthopedic Surgery Additional Past Surgical History / Comment(s): pituitary tumor removed, bit knee replacement, arthroscopy both knees, left rotator cuff repair, hima elbow nerve surgery, cardioversion x 2 Past Anesthesia/Blood Transfusion Reactions: No Reported Reaction Past Psychological History: No Psychological Hx Reported Smoking Status: Never smoker Past Alcohol Use History: Daily Past Drug Use History: None Reported - Past Family History Mother Family Medical History: Cancer Father Family Medical History: Cancer General Exam Limitations: no limitations Course Vital Signs 03/11/21 03:04 Temperature 98.5 F Pulse Rate 78 Respiratory 18 Rate Blood Pressure 146/82 O2 Sat by Pulse 95 Oximetry Disposition Clinical Impression: Abscess of left groin Disposition: HOME SELF-CARE Condition: Good Instructions (If sedation given, give patient instructions): Abscess (ED) Is patient prescribed a controlled substance at d/c from ED?: No Referrals: Jimmy Cheung MD [Primary Care Provider] - 1-2 days
--- NOTE | 2021-03-11 03:57 | CT ---
EXAMINATION TYPE: CT pelvis wo con DATE OF EXAM: 03/11/2021 COMPARISON: None HISTORY: left inguinal heria CT DLP: 1443.2 mGycm Automated exposure control for dose reduction was used. Images obtained from the iliac crests to the subtrochanteric femurs without contrast. Sacroiliac joints are intact. Pelvic ring appears intact. There is left hip prosthesis. Components ap pear intact. There is no free fluid in the pelvis. There is no evidence of a pelvic mass. There are m ultiple sigmoid diverticula. I see no diverticulitis. There is no evidence of any significant inguinal hernia. Sacrum and coccyx appear intact. IMPRESSION: No fracture seen. No evidence of any significant inguinal hernia. Colonic diverticulosis.
[2021-03-11] MEDS ORDERED: AMOXIC-POT CLAV 875MG STARTER PACK 2 TAB BTL PO STA (04:03)
[2021-03-11] MEDS ORDERED: SULFAMETH-TMP DS STARTER PACK 2 TAB BTL PO STA (04:03)
[2021-03-11 04:24] VITALS: BP 153/98; PULSE 83; TEMP 98.8
== END 2021-03-11 04:23 | disposition home or self-care (01) ==
LOC: EC 03:02
DX: L02.214 Cutaneous abscess of groin (principal); I48.91 Unspecified atrial fibrillation; E11.9 Type 2 diabetes mellitus without complications; E78.5 Hyperlipidemia, unspecified; I10 Essential (primary) hypertension; I25.2 Old myocardial infarction; M19.90 Unspecified osteoarthritis, unspecified site; G43.909 Migraine, unspecified, not intractable, without status migrainosus; Z72.89 Other problems related to lifestyle; Z79.84 Long term (current) use of oral hypoglycemic drugs; Z79.01 Long term (current) use of anticoagulants; Z79.899 Other long term (current) drug therapy
CPT/HCPCS: 72192; 99283; 99284

== ENCOUNTER 2023-05-14 06:58 | Day surgery (SDC) | payer OTHER ==
[~2023-05-14 06:58] MED LIST changes: -ACETAMINOPHEN TAB 500 MG TAB PO ONE; -DEXAMETHASONE SOD PHOSPHATE 10 MG/ML 1 ML VIAL IV ONE; +LACTATED RINGERS 1,000 ML IV SCH; +LIDOCAINE 1% (10MG/ML) FOR IV START INTRADERMA PRN; -LIDOCAINE 1% 20 ML VIAL (10MG/ML) FOR IV START INTRADERMA PRN; -MELOXICAM 7.5 MG TAB PO ONE; -MIDAZOLAM 2 MG/2 ML VIAL IV PRN; -ONDANSETRON 4 MG/2 ML VIAL IVP ONE; -TRANEXAMIC ACID 1,000 MG in SODIUM CHLORIDE 0.9% 50 ML IVPB ONE; -fentaNYL (PF) 50 MCG/ML 2 ML AMP IV PRN
[2023-05-14] MEDS ORDERED: ONDANSETRON 4 MG/2 ML VIAL IVP PRN (07:00)
[2023-05-14 07:42] LABS: Glucose,Whole Blood 132 mg/dL (70-110)
[2023-05-14 08:05] VITALS: TEMP 97.1
[2023-05-14] MEDS ORDERED: PROPOFOL 10 MG/ML 20 ML VIAL IV ONE (08:07)
[2023-05-14] MEDS ORDERED: LIDOCAINE 1% INJ 10MG/ML (20 ML MDV) ONE (08:07)
--- NOTE | 2023-05-14 08:14 | P.GSHP ---
History of Present Illness H&P Date: 05/14/23 CHIEF COMPLAINT: GI bleed HISTORY OF PRESENT ILLNESS: The patient is a 62-year-old male who presents with GI bleeding. Upper and lower endoscopy were offered for further evaluation and management. PAST MEDICAL HISTORY: Please see list. PAST SURGICAL HISTORY: Please see list. MEDICATIONS: Please see list. ALLERGIES: Please see list. SOCIAL HISTORY: No illicit drug use FAMILY HISTORY: No reports of Crohn disease or ulcerative colitis. REVIEW OF ORGAN SYSTEMS: CONSTITUTIONAL: No reports of fevers or chills. PHYSICAL EXAM: VITAL SIGNS: Stable GENERAL: Well-developed pleasant in no acute distress. HEENT: No scleral icterus. Extraocular movements grossly intact. Moist buccal mucosa. NECK: Supple without lymphadenopathy. CHEST: Unlabored respirations. Equal bilateral excursions. CARDIOVASCULAR: Regular rate and rhythm. Distal 2+ pulses. ABDOMEN: Soft, nondistended. MUSCULOSKELETAL: No clubbing, cyanosis, or edema. ASSESSMENT: 1. GI bleed PLAN: 1. Recommend proceeding with an upper and lower endoscopy Past Medical History Past Medical History: Atrial Fibrillation, Diabetes Mellitus, Hyperlipidemia, Hypertension, Myocardial Infarction ([place]), Mitral Valve Prolapse (MVP), Osteoarthritis (OA), Pneumonia Additional Past Medical History / Comment(s): hx migraines, hiatal hernia, Last Myocardial Infarction Date:: unknown History of Any Multi-Drug Resistant Organisms: None Reported Past Surgical History: Appendectomy, Hernia Repair, Joint Replacement, Orthopedic Surgery Additional Past Surgical History / Comment(s): Benign pituitary tumor removed, bit knee replacement, arthroscopy both knees, left rotator cuff repair, hima elbow nerve surgery, cardioversion x 2 Past Anesthesia/Blood Transfusion Reactions: No Reported Reaction Smoking Status: Never smoker - Past Family History Mother Family Medical History: Cancer Father Family Medical History: Cancer Medications and Allergies Home Medications Medication Instructions Recorded Confirmed Type Atorvastatin Calcium [Lipitor] 20 mg PO HS 01/05/18 05/07/23 History [place]-3 Fatty Acids/Fish Oil [Fish 1 cap PO QAM 01/05/18 05/07/23 History Oil 1,000 mg Softgel] Warfarin [Coumadin] 5 mg PO MOFR 01/05/18 05/07/23 History Warfarin [Coumadin] 10 mg PO SUTUTHSA 01/05/18 05/07/23 History metFORMIN HCL [Glucophage] 750 mg PO BID 01/05/18 05/07/23 History HYDROcodone/APAP 5-325MG [[place] 1 - 2 tab PO Q4-6H PRN #84 tab 01/14/18 05/07/23 Rx 5-325] Cholecalciferol (Vitamin D3) 125 mg PO QAM 05/07/23 05/07/23 History [Vitamin D3 (125 MCG = 5,000 IU)] Dapagliflozin Propanediol [Farxiga] 10 mg PO QAM 05/07/23 05/07/23 History Metoprolol Succinate [Metoprolol 12.5 mg PO BID 05/07/23 05/07/23 History Succinate ER] Allergies Allergy/AdvReac Type Severity Reaction Status Date / Time shellfish derived Allergy Severe Dyspnea, Verified 05/07/23 13:06 eye and throat swelling Surgical - Exam Vital Signs Temp Pulse Resp BP Pulse Ox 97.1 F L 57 L 16 144/98 96 05/14/23 07:35 05/14/23 07:35 05/14/23 07:35 05/14/23 07:35 05/14/23 07:35 Results - Labs Abnormal Lab Results - Last 24 Hours (Table) 05/14/23 Range/Units 07:36 POC Glucose (mg/dL) 132 H (70-110) mg/dL
--- NOTE | 2023-05-14 08:21 | P.PCN ---
Date of Procedure: 05/14/23 Description of Procedure: PREOPERATIVE DIAGNOSIS: Gastrointestinal bleeding POSTOPERATIVE DIAGNOSIS: Gastritis with bleeding Duodenal polyp OPERATION: Esophagogastroduodenoscopy with biopsies along the esophagus, antrum and duodenum SURGEON: Fawn Bailey MD ANESTHESIA: MAC. INDICATIONS: The patient is a 62-year-old male who presents with gastrointestinal bleeding. Benefits and risks of the procedure were described. Informed consent was obtained. DESCRIPTION: The patient was brought into the endoscopy suite and laid in the left lateral decubitus position. An Olympus gastroscope was passed along the posterior oropharynx down to the distal esophagus where the squamocolumnar junction was encountered at 40 cm from the incisors. The stomach was entered and no bile reflux was found. Additional findings are listed below. Biopsies with cold forceps were obtained of the antrum. The first through third portion of the duodenum was examined. Retroflexion of the scope confirmed Hill grade 2 lower esophageal valve. The squamocolumnar junction demonstrated LA grade B erosive esophagitis. The stomach was desufflated. The patient tolerated the procedure well. FINDINGS: Squamocolumnar junction 40 cm from the incisors. Diaphragmatic hiatus at 40 cm. Hill grade 2 lower esophageal valve. LA grade B erosive esophagitis. Biopsies obtained. Biopsies obtained of the duodenum. Duodenal polyps 2 mm identified. Chronic gastritis with biopsies obtained. Stigmata of recent bleeding identified. RECOMMENDATIONS: Upper endoscopy as needed.
--- NOTE | 2023-05-14 08:42 | P.PCN ---
Date of Procedure: 05/14/23 Description of Procedure: PREOPERATIVE DIAGNOSIS: GI bleeding POSTOPERATIVE DIAGNOSIS: Severe sigmoid diverticulitis Pandiverticulosis Proctitis Colitis OPERATION: Colonoscopy to the ileocecal valve and appendiceal orifice, cecum Colonoscopy with cold forceps biopsy, descending colon SURGEON: Fawn Bailey MD. ANESTHESIA: MAC. INDICATIONS: The patient is an 62-year-old male who presents with GI bleeding over 1 months. Benefits and risks were described and informed consent was obtained. DESCRIPTION OF PROCEDURE: The patient had undergone GoLYTELY prep. The patient had been brought into the operating room and laid in the left lateral decubitus position. After adequate intravenous sedation, the rectum was examined with 2% lidocaine jelly. The prostate fossa was unremarkable. External hemorrhoids were encountered. The rectal tone was within normal limits. No lesions were palpated in the rectal vault. An Olympus colonoscope was advanced until the cecum, ileocecal valve and appendiceal orifice were clearly viewed. The prep was poor to fair. Pandiverticulosis was identified. Acute sigmoid diverticulitis with proctitis was found to moderate inflammation, edema of the tissues and cryptic abscesses. Exam was nondiagnostic for small colonic polyps due to poor prep. Retroflexion of the scope demonstrated grade 2 internal hemorrhoids without active bleeding or inflammation. The colon was desufflated. The patient had tolerated the procedure well. Withdrawal time was over 6 minutes. FINDINGS: Aronchick preparation quality scale 3+ (1-5) Internal hemorrhoids, grade 2 External hemorrhoids, grade 2 No arteriovenous malformations. Pandiverticulosis Moderate to severe sigmoid diverticulitis with cryptic abscesses and edema Proctitis Biopsies obtained descending colon No focal colitis. RECOMMENDATIONS: Due to presentation, recommend admission for severe diverticulitis Stat CBC Recommend IV antibiotic Plan - Discharge Summary Discharge Rx Participant: No New Discharge Prescriptions: New metroNIDAZOLE [Flagyl] 500 mg PO TID #30 tab Amoxic-Pot Clav 875-125Mg [Augmentin 875-125] 1 tab PO Q12HR 1 Days #10 tab Continue metFORMIN HCL [Glucophage] 750 mg PO BID Atorvastatin Calcium [Lipitor] 20 mg PO HS Warfarin [Coumadin] 5 mg PO MOFR Warfarin [Coumadin] 10 mg PO SUTUTHSA [place]-3 Fatty Acids/Fish Oil [Fish Oil 1,000 mg Softgel] 1 cap PO QAM HYDROcodone/APAP 5-325MG [[place] 5-325] 1 - 2 tab PO Q4-6H PRN #84 tab PRN Reason: Pain Metoprolol Succinate [Metoprolol Succinate ER] 12.5 mg PO BID Cholecalciferol (Vitamin D3) [Vitamin D3 (125 MCG = 5,000 IU)] 125 mg PO QAM Dapagliflozin Propanediol [Farxiga] 10 mg PO QAM Discharge Medication List Atorvastatin Calcium [Lipitor] 20 mg PO HS 01/05/18 [History] [place]-3 Fatty Acids/Fish Oil [Fish Oil 1,000 mg Softgel] 1 cap PO QAM 01/05/18 [History] Warfarin [Coumadin] 5 mg PO MOFR 01/05/18 [History] Warfarin [Coumadin] 10 mg PO SUTUTHSA 01/05/18 [History] metFORMIN HCL [Glucophage] 750 mg PO BID 01/05/18 [History] HYDROcodone/APAP 5-325MG [[place] 5-325] 1 - 2 tab PO Q4-6H PRN #84 tab 01/14/18 [Rx] Cholecalciferol (Vitamin D3) [Vitamin D3 (125 MCG = 5,000 IU)] 125 mg PO QAM 05/07/23 [History] Dapagliflozin Propanediol [Farxiga] 10 mg PO QAM 05/07/23 [History] Metoprolol Succinate [Metoprolol Succinate ER] 12.5 mg PO BID 05/07/23 [History] Amoxic-Pot Clav 875-125Mg [Augmentin 875-125] 1 tab PO Q12HR 1 Days #10 tab 05/14/23 [Rx] metroNIDAZOLE [Flagyl] 500 mg PO TID #30 tab 05/14/23 [Rx] Follow up Appointment(s)/Referral(s): Fawn Bailey MD [STAFF PHYSICIAN] - 05/20/23 9:15 am Jimmy Cheung MD [Primary Care Provider] - 1-2 Days Patient Instructions/Handouts: *Surgery [facility] - (Anesthesia) Discharge Instructions Outpatient Surgery, Diverticulitis (DC), Rectal Bleeding (DC) Activity/Diet/Wound Care/Special Instructions: Low residue, full liquid diet for 2 weeks. Do not resume coumading for 1 week, until 05/21/23 Discharge Disposition: HOME SELF-CARE
[2023-05-14 09:01] LABS: Basophils % (A) 0 %; Eosinophils # (A) 0.1 k/uL (0-0.7); Eosinophils % (A) 1 %; HCT 44.2 % (39.0-53.0); HGB 14.3 gm/dL (13.0-17.5); Lymphocytes # (A) 1.5 k/uL (1.0-4.8); Lymphocytes % (A) 18 %; MCH 27.9 pg (25.0-35.0); MCHC 32.3 g/dL (31.0-37.0); MCV 86.2 fL (80.0-100.0); Mean Platelet Volume 7.4; Monocytes # (A) 0.7 k/uL (0-1.0); Monocytes % (A) 8 %; Neutrophils % (A) 71 %; Platelet Count 337 k/uL (150-450); RBC 5.12 m/uL (4.30-5.90); RDW 13.9 % (11.5-15.5); WBC 8.5 k/uL (3.8-10.6)
[2023-05-14 09:17] LABS: ALT 19 U/L (4-49); AST 26 U/L (17-59); African American GFR (CKD) >90 (>60 ml/min/1.73 sqM); Albumin 3.3 g/dL (3.5-5.0); Alkaline Phosphatase 75 U/L (38-126); Anion Gap 8 mmol/L; Blood Urea Nitrogen 12 mg/dL (9-20); Calcium 8.5 mg/dL (8.4-10.2); Carbon Dioxide 27 mmol/L (22-30); Chloride 105 mmol/L (98-107); Glucose 131 mg/dL (74-99); Non-African American GFR(CKD) >90 (>60 ml/min/1.73 sqM); Potassium 3.6 mmol/L (3.5-5.1); Sodium 140 mmol/L (137-145); Total Bilirubin 0.9 mg/dL (0.2-1.3); Total Protein 6.1 g/dL (6.3-8.2)
[2023-05-14] MEDS: BARIUM SULFATE 2% - 450 ML ORAL.SUSP BOTTLE PO PRN ×2 (09:53→13:00)
[2023-05-14 10:07] VITALS: BP 130/85; PULSE 66; RESP 20
--- NOTE | 2023-05-14 11:32 | P.PN ---
Progress Note - Text Progress Note Date: 05/14/23 CBC and CMP obtained. Creatinine normal. Stat CT of the abdomen and pelvis advised for pelvic abscess. Discharge pending results of computed tomography scan. Augmentin and Flagyl prescribed with follow-up with primary care provider.
--- NOTE | 2023-05-14 14:22 | CT ---
EXAMINATION TYPE: CT abdomen pelvis w con DATE OF EXAM: 05/14/2023 COMPARISON: Prior pelvic CT March 11, 2021 HISTORY: acute diverticulitis CT DLP: 2216.5 mGycm, Automated Exposure Control for Dose Reduction was Utilized. CONTRAST: CT scan of the abdomen and pelvis is performed with oral and with IV Contrast, patient injected with 100 mL of Isovue 300. FINDINGS: LUNG BASES: No significant abnormality is appreciated. LIVER/GB: Liver is diffusely low-density consistent with fatty infiltrative hepatocellular disease. C ontracted gallbladder is seen PANCREAS: No significant abnormality is seen. SPLEEN: No significant abnormality is seen. ADRENALS: No significant abnormality is seen. KIDNEYS: No significant abnormality is seen. BOWEL: Incidental roughly 2.0 cm duodenal diverticulum along the second portion coronal image 61. Ora l contrast reaches the proximal sigmoid colon level. No abnormal small or large bowel dilatation. Dis garett colonic diverticula are redemonstrated greatest in the sigmoid colon. Moderate wall thickening in the proximal sigmoid colon. Mild to moderate wall thickening in the distal left colon. Focal mild to moderate fat stranding in the left upper pelvis near the junction of the left and sigmoid colon. No free air. No well-formed fluid collection or abscess seen. PROSTATE/SEMINAL VESICLES: No gross abnormality seen. LYMPH NODES: No greater than 1cm abdominal or pelvic lymph nodes are appreciated. OSSEOUS STRUCTURES: Metallic hardware from total left hip arthroplasty redemonstrated causing streak artifact somewhat limiting evaluation of pelvic structures. Mild to moderate spurring and disc space narrowing at L2-L3 level is redemonstrated. OTHER: No significant additional abnormality is seen. IMPRESSION: CT findings confirm a uncomplicated acute diverticulitis near the junction of left and si gmoid colon in the left lower quadrant/upper pelvis as detailed above.
--- NOTE | 2023-05-14 15:04 | P.PN ---
Progress Note - Text Progress Note Date: 05/14/23 CT reviewed. Discharge with close outpatient follow-up.
== END 2023-05-14 15:21 | disposition home or self-care (01) ==
LOC: ORWHC2ENDO 06:58
PROVIDERS: ATTEND Surgery Plastic and Reconstructive Surgery
DX: K29.51 Unspecified chronic gastritis with bleeding (principal); D13.2 Benign neoplasm of duodenum; K21.00 Gastro-esophageal reflux disease with esophagitis, without bleeding; K44.9 Diaphragmatic hernia without obstruction or gangrene; K52.9 Noninfective gastroenteritis and colitis, unspecified; K64.1 Second degree hemorrhoids; K57.30 Diverticulosis of large intestine without perforation or abscess without bleeding; K62.89 Other specified diseases of anus and rectum; K57.20 Diverticulitis of large intestine with perforation and abscess without bleeding; I48.91 Unspecified atrial fibrillation; E11.69 Type 2 diabetes mellitus with other specified complication; E78.5 Hyperlipidemia, unspecified; I10 Essential (primary) hypertension; I25.2 Old myocardial infarction; I34.1 Nonrheumatic mitral (valve) prolapse; M19.90 Unspecified osteoarthritis, unspecified site; G43.909 Migraine, unspecified, not intractable, without status migrainosus; Z90.49 Acquired absence of other specified parts of digestive tract; Z79.84 Long term (current) use of oral hypoglycemic drugs; Z79.01 Long term (current) use of anticoagulants; Z79.899 Other long term (current) drug therapy; Z80.9 Family history of malignant neoplasm, unspecified; Z91.013 Allergy to seafood; Z87.891 Personal history of nicotine dependence
CPT/HCPCS: 88305; 80053; 85025; 74177; 45380; 43239; J2001; J2704; Q9967

== ENCOUNTER 2023-07-30 08:51 | Day surgery (SDC) | payer OTHER ==
[2023-07-28 12:18] VITALS: BMI 32.8
--- NOTE | 2023-07-30 08:26 | P.GSHP ---
History of Present Illness H&P Date: 07/30/23 CHIEF COMPLAINT: Diverticulitis and rectal bleeding HISTORY OF PRESENT ILLNESS: The patient is a 62-year-old male who presents diverticulitis and rectal bleeding. Lower endoscopy was offered for further evaluation and management. PAST MEDICAL HISTORY: Please see list. PAST SURGICAL HISTORY: Please see list. MEDICATIONS: Please see list. ALLERGIES: Please see list. SOCIAL HISTORY: No illicit drug use FAMILY HISTORY: No reports of Crohn disease or ulcerative colitis. REVIEW OF ORGAN SYSTEMS: CONSTITUTIONAL: No reports of fevers or chills. PHYSICAL EXAM: VITAL SIGNS: Stable GENERAL: Well-developed pleasant in no acute distress. HEENT: No scleral icterus. Extraocular movements grossly intact. Moist buccal mucosa. NECK: Supple without lymphadenopathy. CHEST: Unlabored respirations. Equal bilateral excursions. CARDIOVASCULAR: Regular rate and rhythm. Distal 2+ pulses. ABDOMEN: Soft, nontender, nondistended. MUSCULOSKELETAL: No clubbing, cyanosis, or edema. ASSESSMENT: 1. Diverticulitis and rectal bleeding PLAN: 1. Recommend proceeding with a lower endoscopy Past Medical History Past Medical History: Atrial Fibrillation, Diabetes Mellitus, Hyperlipidemia, Hypertension, Myocardial Infarction ([place]), Mitral Valve Prolapse (MVP), Osteoarthritis (OA), Pneumonia Additional Past Medical History / Comment(s): hx migraines, hiatal hernia, Last Myocardial Infarction Date:: unknown History of Any Multi-Drug Resistant Organisms: None Reported Past Surgical History: Appendectomy, Hernia Repair, Joint Replacement, Orth opedic Surgery Additional Past Surgical History / Comment(s): Benign pituitary tumor removed, bit knee replacement, arthroscopy both knees, left rotator cuff repair, hima elbow nerve surgery, cardioversion x 2 cataract surgery , colonoscopy Past Anesthesia/Blood Transfusion Reactions: No Reported Reaction Additional Past Anesthesia/Blood Transfusion Reaction / Comment(s): no blood transfusion Smoking Status: Never smoker - Past Family History Mother Family Medical History: Cancer Father Family Medical History: Cancer Additional Family Medical History / Comment(s): stomach Medications and Allergies Home Medications Medication Instructions Recorded Confirmed Type Atorvastatin Calcium [Lipitor] 20 mg PO HS 01/05/18 07/28/23 History [place]-3 Fatty Acids/Fish Oil [Fish 1 cap PO QAM 01/05/18 07/28/23 History Oil 1,000 mg Softgel] Warfarin [Coumadin] 5 mg PO MOFR 01/05/18 07/28/23 History Warfarin [Coumadin] 10 mg PO SUTUTHSA 01/05/18 07/28/23 History metFORMIN HCL [Glucophage] 750 mg PO BID 01/05/18 07/28/23 History HYDROcodone/APAP 5-325MG [[place] 1 - 2 tab PO Q4-6H PRN #84 tab 01/14/18 07/28/23 Rx 5-325] Cholecalciferol (Vitamin D3) 125 mg PO QAM 05/07/23 07/28/23 History [Vitamin D3 (125 MCG = 5,000 IU)] Dapagliflozin Propanediol [Farxiga] 10 mg PO QAM 05/07/23 07/28/23 History Metoprolol Succinate [Metoprolol 12.5 mg PO BID 05/07/23 07/28/23 History Succinate ER] Allergies Allergy/AdvReac Type Severity Reaction Status Date / Time shellfish derived Allergy Severe Dyspnea, Verified 07/28/23 11:48 eye and throat swelling
[~2023-07-30 08:51] MED LIST changes: -LIDOCAINE 1% (10MG/ML) FOR IV START INTRADERMA PRN
[2023-07-30 09:27] LABS: Glucose,Whole Blood 111 mg/dL (70-110)
[2023-07-30] MEDS: LACTATED RINGERS 1,000 ML IV ONE (09:30)
[2023-07-30] MEDS ORDERED: PROPOFOL 10 MG/ML 20 ML VIAL IV ONE (09:38)
[2023-07-30 09:41] VITALS: RESP 16; TEMP 96.8
[2023-07-30 10:08] LABS: Glucose,Whole Blood 124 mg/dL (70-110)
[2023-07-30 10:22] VITALS: BP 123/86; PULSE 59
--- NOTE | 2023-07-30 10:49 | P.PCN ---
Date of Procedure: 07/30/23 Description of Procedure: PREOPERATIVE DIAGNOSIS: Diverticulitis with rectal bleeding POSTOPERATIVE DIAGNOSIS: Colitis with sigmoid diverticulitis OPERATION: Colonoscopy to the ileocecal valve and appendiceal orifice, cecum SURGEON: Fawn Bailey MD. ANESTHESIA: MAC. INDICATIONS: The patient is an 62-year-old male with pre-existing history of severe colitis and GI bleed. He reports severe symptoms. Benefits and risks were described and informed consent was obtained. DESCRIPTION OF PROCEDURE: The patient had undergone GoLYTELY prep. The patient had been brought into the operating room and laid in the left lateral decubitus position. After adequate intravenous sedation, the rectum was examined with 2% lidocaine jelly. The prostate fossa was unremarkable. External hemorrhoids were encountered. The rectal tone was within normal limits. No lesions were palpated in the rectal vault. An Olympus colonoscope was advanced until the cecum, ileocecal valve and appendiceal orifice were clearly viewed. The prep was fair however semisolid stool identified along the ascending colon. Sigmoid diverticulitis with scattered pandiverticulosis was identified. Resolving colitis was identified with resolved cryptic abscess. Colitis identified at 15 cm from the anal verge to the rectum. Retroflexion of the scope demonstrated grade 2 internal hemorrhoids without active bleeding or inflammation. The colon was desufflated. The patient had tolerated the procedure well. Withdrawal time was over 6 minutes. FINDINGS: Aronchick preparation quality scale 2+ (1-5) Internal hemorrhoids, grade 2 External hemorrhoids, grade 2 No arteriovenous malformations. Pandiverticulosis Sigmoid diverticulitis from 50 cm to sigmoid rectal junction RECOMMENDATIONS: Start antibiotics Augmentin for 3 weeks Discontinue fish oil and vitamin D due to increased risk for bleeding Recommend colectomy Plan - Discharge Summary Discharge Rx Participant: No New Discharge Prescriptions: New Amoxic-Pot Clav 875-125Mg [Augmentin Xr 875-125] 1 each PO Q12HR #30 tablet Continue metFORMIN HCL [Glucophage] 750 mg PO BID Atorvastatin Calcium [Lipitor] 20 mg PO HS Warfarin [Coumadin] 5 mg PO MOFR Warfarin [Coumadin] 10 mg PO SUTUTHSA HYDROcodone/APAP 5-325MG [[place] 5-325] 1 - 2 tab PO Q4-6H PRN #84 tab PRN Reason: Pain Metoprolol Succinate [Metoprolol Succinate ER] 12.5 mg PO BID Dapagliflozin Propanediol [Farxiga] 10 mg PO QAM Discontinued [place]-3 Fatty Acids/Fish Oil [Fish Oil 1,000 mg Softgel] 1 cap PO QAM Cholecalciferol (Vitamin D3) [Vitamin D3 (125 MCG = 5,000 IU)] 125 mg PO QAM Discharge Medication List Atorvastatin Calcium [Lipitor] 20 mg PO HS 01/05/18 [History] Warfarin [Coumadin] 5 mg PO MOFR 01/05/18 [History] Warfarin [Coumadin] 10 mg PO SUTUTHSA 01/05/18 [History] metFORMIN HCL [Glucophage] 750 mg PO BID 01/05/18 [History] HYDROcodone/APAP 5-325MG [[place] 5-325] 1 - 2 tab PO Q4-6H PRN #84 tab 01/14/18 [Rx] Dapagliflozin Propanediol [Farxiga] 10 mg PO QAM 05/07/23 [History] Metoprolol Succinate [Metoprolol Succinate ER] 12.5 mg PO BID 05/07/23 [History] Amoxic-Pot Clav 875-125Mg [Augmentin Xr 875-125] 1 each PO Q12HR #30 tablet 07/30/23 [Rx] Follow up Appointment(s)/Referral(s): Fawn Bailey MD [STAFF PHYSICIAN] - 08/05/23 3:15 pm Patient Instructions/Handouts: *Surgery [facility] - (Anesthesia) Discharge Instructions Outpatient Surgery, Rectal Bleeding (DC), Colitis (ED) Activity/Diet/Wound Care/Special Instructions: Start antibiotics. May immediately resume blood thinner Discharge Disposition: HOME SELF-CARE
== END 2023-07-30 10:40 | disposition home or self-care (01) ==
LOC: ORWHC2ENDO 08:51
PROVIDERS: ATTEND Surgery Plastic and Reconstructive Surgery
DX: K62.5 Hemorrhage of anus and rectum (principal); K57.92 Diverticulitis of intestine, part unspecified, without perforation or abscess without bleeding; I48.91 Unspecified atrial fibrillation; I10 Essential (primary) hypertension; E78.5 Hyperlipidemia, unspecified; E11.9 Type 2 diabetes mellitus without complications; I25.2 Old myocardial infarction; I34.1 Nonrheumatic mitral (valve) prolapse; M19.90 Unspecified osteoarthritis, unspecified site; Z90.49 Acquired absence of other specified parts of digestive tract; Z98.890 Other specified postprocedural states; Z79.84 Long term (current) use of oral hypoglycemic drugs; Z79.899 Other long term (current) drug therapy; Z88.2 Allergy status to sulfonamides
CPT/HCPCS: 45378; J2704

== ENCOUNTER → 2023-12-15 | Outpatient (CLI) | payer OTHER | END | disposition home or self-care (01) | LOC: LABWHC1 16:11 | PROVIDERS: ATTEND Surgery Plastic and Reconstructive Surgery | DX: K57.30 Diverticulosis of large intestine without perforation or abscess without bleeding (principal) | CPT/HCPCS: 86850; 86900; 86901 ==

== ENCOUNTER 2023-12-18 09:00 | Inpatient (IN) | payer OTHER ==
[2023-12-18] MEDS ORDERED: LIDOCAINE 1% INJ 10MG/ML (20 ML MDV) ONE (11:36)
[2023-12-18] MEDS ORDERED: PROPOFOL 10 MG/ML 20 ML VIAL IV ONE (11:36)
[2023-12-18] MEDS ORDERED: SODIUM CHLORIDE 0.9% 1,000 ML BAG ONE (15:40)
[2023-12-18 20:59] LABS: Glucose,Whole Blood 104 mg/dL (70-110)
[2023-12-18] MEDS ORDERED: TEMAZEPAM 15 MG CAP ONE ×2 (21:57)
[2023-12-18] MEDS ORDERED: ATORVASTATIN 20 MG TAB ONE (22:04)
[2023-12-19 06:04] LABS: Glucose,Whole Blood 104 mg/dL (70-110)
[2023-12-19] MEDS ORDERED: METOPROLOL SUCCINATE (ER) 25 MG TAB.ER.24H PO ONE (07:49)
[2023-12-19] MEDS ORDERED: TAMSULOSIN 0.4 MG CAP.ER.24H PO ONE (07:49)
[2023-12-19] MEDS ORDERED: HEPARIN SODIUM,PORCINE 5,000 UNIT/ML 1 ML VIAL ONE (07:50)
[2023-12-19] MEDS ORDERED: ALVIMOPAN 12 MG CAPSULE ONE (07:57)
[2023-12-19] MEDS ORDERED: LIDOCAINE 1%-EPI 1:100,000 20 ML VIAL ONE (10:34)
[2023-12-19] MEDS ORDERED: LACTATED RINGERS 1,000 ML BAG ONE (10:34)
[2023-12-19] MEDS ORDERED: fentaNYL (PF) 50 MCG/ML 2 ML AMP ONE (11:58)
[2023-12-19] MEDS ORDERED: PROPOFOL 10 MG/ML 20 ML VIAL IV ONE (11:58)
[2023-12-19] MEDS ORDERED: PHENYLEPHRINE 10 MG/ML VIAL ONE (11:58)
[2023-12-19] MEDS ORDERED: HYDROmorphone (PF) 1 MG/ML ONE (11:58)
[2023-12-19] MEDS ORDERED: DEXAMETHASONE SOD PHOSPHATE 4 MG/ML 1 ML VIAL ONE (11:58)
[2023-12-19] MEDS ORDERED: KETAMINE HCL IN 0.9 % NACL 50 MG/5 ML SYRINGE ONE (11:58)
[2023-12-19] MEDS ORDERED: KETOROLAC 15 MG/ML 1 ML VIAL ONE (11:58)
[2023-12-19] MEDS ORDERED: SODIUM CHLORIDE 0.9% (PF) 10 ML VIAL ONE (11:58)
[2023-12-19] MEDS ORDERED: GLYCOPYRROLATE 0.2 MG/ML 2 ML VIAL ONE (11:58)
[2023-12-19] MEDS ORDERED: ROCURONIUM 10 MG/ML (5 ML VIAL) IV ONE (11:58)
[2023-12-19] MEDS ORDERED: NEOSTIGMINE 1 MG/ML 10 ML VIAL ONE (11:58)
[2023-12-19] MEDS ORDERED: MIDAZOLAM 2 MG/2 ML VIAL ONE (11:58)
[2023-12-19] MEDS ORDERED: BUPIVACAINE (PF) 0.5% 30 ML VIAL ONE (11:58)
[2023-12-19] MEDS ORDERED: SUCCINYLCHOLINE CHLORIDE 200 MG/10 ML VIAL IV ONE (11:58)
[2023-12-19 21:58] LABS: Glucose,Whole Blood 149 mg/dL (70-110)
[2023-12-20] MEDS ORDERED: SODIUM CHLORIDE 0.9% 50 ML BAG ONE (00:01)
[2023-12-20] MEDS ORDERED: ceFAZolin 10 GM VIAL IVPB ONE (00:01)
[2023-12-20] MEDS ORDERED: DEXTROSE 5%-0.45% NACL 1,000 ML BAG IV ONE (00:01)
[2023-12-20] MEDS ORDERED: METOPROLOL SUCCINATE (ER) 25 MG TAB.ER.24H PO ONE (10:34)
[2023-12-20] MEDS ORDERED: HEPARIN SODIUM,PORCINE 5,000 UNIT/ML 1 ML VIAL ONE (10:34)
[2023-12-20] MEDS ORDERED: metroNIDAZOLE-NS PMX 100 ML ONE ×2 (10:34→21:06)
[2023-12-20] MEDS ORDERED: FAMOTIDINE 20 MG/2 ML VIAL ONE ×4 (10:34→21:07)
[2023-12-20] MEDS ORDERED: GABAPENTIN 300 MG CAP ONE (10:41)
[2023-12-20] MEDS ORDERED: ALVIMOPAN 12 MG CAPSULE ONE ×2 (10:41→21:06)
[2023-12-20] MEDS ORDERED: HYDROmorphone 1 MG/ML 1 ML SYRINGE ONE ×6 (11:07→21:06)
[2023-12-20 11:46] LABS: Glucose,Whole Blood 90 mg/dL (70-110)
[2023-12-20 17:06] LABS: Glucose,Whole Blood 104 mg/dL (70-110)
[2023-12-20] MEDS ORDERED: ATORVASTATIN 20 MG TAB ONE (21:05)
[2023-12-21] MEDS ORDERED: GABAPENTIN 300 MG CAP ONE ×4 (00:14→23:45)
[2023-12-21] MEDS ORDERED: HEPARIN SODIUM,PORCINE 5,000 UNIT/ML 1 ML VIAL ONE ×4 (00:14→23:45)
[2023-12-21 06:15] LABS: Glucose,Whole Blood 127 mg/dL (70-110)
[2023-12-21] MEDS ORDERED: METOPROLOL SUCCINATE (ER) 25 MG TAB.ER.24H PO ONE (09:11)
[2023-12-21] MEDS ORDERED: ALVIMOPAN 12 MG CAPSULE ONE ×2 (09:11→21:44)
[2023-12-21] MEDS ORDERED: DAPAGLIFLOZIN PROPANEDIOL 10 MG TABLET ONE (09:11)
[2023-12-21] MEDS ORDERED: FAMOTIDINE 20 MG/2 ML VIAL ONE ×4 (09:12→21:46)
[2023-12-21] MEDS ORDERED: HYDROcodone/APAP 5-325MG 1 EACH TAB ONE ×4 (09:21→15:38)
[2023-12-21 11:52] LABS: Glucose,Whole Blood 137 mg/dL (70-110)
[2023-12-21 16:41] LABS: Glucose,Whole Blood 142 mg/dL (70-110)
[2023-12-21 21:42] LABS: Glucose,Whole Blood 106 mg/dL (70-110)
[2023-12-21] MEDS ORDERED: ATORVASTATIN 20 MG TAB ONE (21:44)
[2023-12-22 06:28] LABS: Glucose,Whole Blood 140 mg/dL (70-110)
[2023-12-22] MEDS ORDERED: DAPAGLIFLOZIN PROPANEDIOL 10 MG TABLET ONE (08:24)
[2023-12-22] MEDS ORDERED: ALVIMOPAN 12 MG CAPSULE ONE (08:24)
[2023-12-22] MEDS ORDERED: HEPARIN SODIUM,PORCINE 5,000 UNIT/ML 1 ML VIAL ONE ×2 (08:25→17:24)
[2023-12-22] MEDS ORDERED: GABAPENTIN 300 MG CAP ONE ×2 (08:25→17:24)
[2023-12-22] MEDS ORDERED: METOPROLOL SUCCINATE (ER) 25 MG TAB.ER.24H PO ONE (08:25)
[2023-12-22] MEDS ORDERED: FAMOTIDINE 20 MG/2 ML VIAL ONE ×2 (08:25)
[2023-12-22] MEDS ORDERED: HYDROcodone/APAP 5-325MG 1 EACH TAB ONE ×2 (08:31)
--- NOTE | 2024-03-17 22:54 | P.GSHP ---
History of Present Illness H&P Date: 12/18/23 CHIEF COMPLAINT: Sigmoid diverticulosis possible obstruction HISTORY OF PRESENT ILLNESS: The patient is a 63-year-old male who presents with change in bowel habits, bleeding, including intermittent large bowel obstruction for over 6 months. He reports intermittent gas bloat. Despite medical olya tment, his condition has worsened. He presents for surgical options, sigmoid colectomy. PAST MEDICAL HISTORY: Please see list. PAST SURGICAL HISTORY: Please see list. MEDICATIONS: Please see list. ALLERGIES: Please see list. SOCIAL HISTORY: No illicit drug use FAMILY HISTORY: No reports of Crohn disease or ulcerative colitis. REVIEW OF ORGAN SYSTEMS: CONSTITUTIONAL: Denies any fever or chills. Has morbid obesity, BMI over 35. HEENT: Denies any trouble with vision or nosebleeds. No difficulty swallowing. LYMPHATIC: The patient denies any lumps and bumps around the neck. ENDOCRINE: Denies any thyroid disorders. Has blood sugar glucose intolerance due to diabetes type 2 RESPIRATORY: Denies pneumonia. Denies any troubles with breathing or dyspnea on exertion. CARDIOVASCULAR: Has atrial fibrillation. Has hyperlipidemia. Has hypertensive heart disease. History of myocardial infarction. History of mitral valvular prolapse. GASTROINTESTINAL: Has chronic diverticulitis. Has hiatal hernia. Has gastroesophageal reflux disease. GENITOURINARY: Has increased urinary frequency. MUSCULOSKELETAL: Has back pain, stiffness, joint arthritis. NEUROLOGIC: Denies any numbness or tingling along the distal extremities. No seizure disorders or headaches. PSYCHIATRIC: Denies depression or suidical ideation. HEMATOLOGIC: On chronic blood thinners for atrial fibrillation PHYSICAL EXAM: VITAL SIGNS: Stable GENERAL: Well-developed pleasant in no acute distress. HEENT: No scleral icterus. Extraocular movements grossly intact. Moist buccal mucosa. NECK: Supple without lymphadenopathy. CHEST: Unlabored respirations. Equal bilateral excursions. CARDIOVASCULAR: Regular rate and rhythm. Distal 2+ pulses. ABDOMEN: Soft, nontender, nondistended. MUSCULOSKELETAL: No clubbing, cyanosis, or edema. NERUO: Cranial nerves 2-12 grossly intact. PSYCH: Alert and oriented to person place and time. REPORTS: Cardiac risk assessment obtained which she is elevated risk of complications. ASSESSMENT: 1. Sigmoid diverticulosis with intermittent bowel obstruction PLAN: 1. Benefits and risks of surgical robotic sigmoid resection was reviewed in detail. Robotic-assisted approach was also described. 2. Enhanced colon recovery program. 3. DVT prophylaxis. 4. Antibiotic prophylaxis. 5. Inpatient hospitalization greater than 2 nights. 6. Recommend colonoscopy for extent of obstruction and evaluation of neoplasm. 7. Endoscopic assessment with tattooing described for extent of sigmoid resection. 8. Patient is elevated risk of complications due to pre-existing comorbidities including atrial fibrillation, chronic anticoagulation use, hypertensive heart disease, morbid obesity, diabetes type 2. Past Medical History Past Medical History: Atrial Fibrillation, Diabetes Mellitus, Hyperlipidemia, Hypertension, Myocardial Infarction ([place]), Mitral Valve Prolapse (MVP), Osteoarthritis ([place]), Pneumonia Additional Past Medical History / Comment(s): hx migraines, hiatal hernia, Last Myocardial Infarction Date:: unknown History of Any Multi-Drug Resistant Organisms: None Reported Past Surgical History: Appendectomy, Hernia Repair, Joint Replacement, Orthopedic Surgery Additional Past Surgical History / Comment(s): Benign pituitary tumor removed, bit knee replacement, arthroscopy both knees, left rotator cuff repair, hima elbow nerve surgery, cardioversion x 2 cataract surgery , colonoscopy Past Anesthesia/Blood Transfusion Reactions: No Reported Reaction Additional Past Anesthesia/Blood Transfusion Reaction / Comment(s): no blood transfusion Smoking Status: Never smoker - Past Family History Mother Family Medical History: Cancer Father Family Medical History: Cancer Additional Family Medical History / Comment(s): stomach Medications and Allergies Home Medications Medication Instructions Recorded Confirmed Type Atorvastatin Calcium [Lipitor] 20 mg PO HS 01/05/18 07/28/23 History Warfarin [Coumadin] 5 mg PO MOFR 01/05/18 07/28/23 History Warfarin [Coumadin] 10 mg PO SUTUTHSA 01/05/18 07/28/23 History metFORMIN HCL [Glucophage] 750 mg PO BID 01/05/18 07/28/23 History HYDROcodone/APAP 5-325MG [[place] 1 - 2 tab PO Q4-6H PRN #84 tab 01/14/18 07/28/23 Rx 5-325] Dapagliflozin Propanediol [Farxiga] 10 mg PO QAM 05/07/23 07/28/23 History Metoprolol Succinate [Metoprolol 12.5 mg PO BID 05/07/23 07/28/23 History Succinate ER] Amoxic-Pot Clav 875-125Mg 1 each PO Q12HR #30 tablet 07/30/23 Rx [Augmentin Xr 875-125] Allergies Allergy/AdvReac Type Severity Reaction Status Date / Time shellfish derived Allergy Severe Dyspnea, Verified 07/30/23 09:09 eye and throat swelling
--- NOTE | 2024-03-17 22:58 | P.PCN ---
Date of Procedure: 12/18/23 Description of Procedure: PREOPERATIVE DIAGNOSIS: Diverticulitis with bowel obstruction Gastrointestinal bleeding POSTOPERATIVE DIAGNOSIS: Diverticulitis with bowel obstruction Gastrointestinal bleeding OPERATION: Colonoscopy to the cecum, ileocecal valve and appendiceal orifice. SURGEON: Fawn Bailey MD. ANESTHESIA: MAC. INDICATIONS: The patient is a 63-year-old male who presents for diverticulitis with partial bowel obstruction and bleeding. Benefits and risks were described and informed consent was obtained. DESCRIPTION OF PROCEDURE: The patient had undergone Sutab prep. The patient had been brought into the operating room and laid in the left lateral decubitus position. After adequate intravenous sedation, the rectum was examined with 2% lidocaine jelly. External hemorrhoids were encountered. The rectal tone was within normal limits. No lesions were palpated in the rectal vault. An Olympus colonoscope was advanced until the cecum, ileocecal valve and appendiceal orifice were clearly viewed. The prep was good. Scattered diverticulosis was encountered. No colonic polyps were found. No evidence of focal colitis was found. Retroflexion of the scope demonstrated grade 1 internal hemorrhoids without active bleeding or inflammation. The colon was desufflated. The patient had tolerated the procedure well. Withdrawal time was over 6 minutes. FINDINGS: Aronchick preparation quality scale 1+(1-5) Internal hemorrhoids, grade 1 External prolapsed hemorrhoids, grade 1 No arteriovenous malformations. No adenomatous polyps. Mild proctitis. Moderate sigmoid diverticulosis with diverticulitis of sigmoid colon RECOMMENDATIONS: Patient has improved proctitis however persistent diverticulitis. Due to recurrent bleeding, sigmoid colectomy described with low anterior resection. Inpatient hospitalization due to diverticulitis including multiple comorbidities.
--- NOTE | 2024-03-17 23:15 | P.OP ---
Date of Procedure: 12/19/23 Description of Procedure: SURGEON: MIKAL BERMUDEZ MD PREOPERATIVE DIAGNOSES: 1. Large bowel obstruction due to diverticulitis 2. Diabetes type 2, [id number] 3. Ischemic cardiomyopathy 4. Hypertensive heart disease 5. Atrial fibrillation 6. Chronic anticoagulation 7. Gastrointestinal bleeding due to diverticulitis 8. Proctitis 9. Morbid obesity due to excess calories, BMI 35 10. History of myocardial infarction 11. Mitral valve prolapse POSTOPERATIVE DIAGNOSES: 1. Severe ascending and sigmoid diverticulitis with localized perforation 2. Diabetes type 2, [id number] 3. Ischemic cardiomyopathy 4. Hypertensive heart disease 5. Atrial fibrillation 6. Chronic anticoagulation 7. Gastrointestinal bleeding due to diverticulitis 8. Proctitis 9. Morbid obesity due to excess calories, BMI 35 10. History of myocardial infarction 11. Mitral valve prolapse 12. Pelvic adhesions 13. Rectal bleeding from hemorrhoids OPERATION: 1. Robotic-assisted daVinci Xi laparoscopic extensive lysis of adhesions over 4 hours for takedown of left pelvic phlegmon 2. Robotic-assisted daVinci Xi laparoscopic with sigmoid colectomy and low anterior resection using 29 mm EEA non-powered stapler 3. Robotic-assisted daVinci Xi laparoscopic mobilization of splenic flexure 4. Intraoperative colonoscopy for flexible sigmoidoscopy Anesthesia: GETA, local, epidural Estimated Blood Loss (ml): 100 Pathology: other (Sigmoid colon) Condition: stable Disposition: floo COMPLICATIONS: None. Operative Findings: 1. Severe pelvic adhesions due to previously contained perforated sigmoid diverticulitis 2. Severe phlegmon reaction of the descending colon requiring extensive and careful lysis of adhesions 3. Anastomosis performed using Ethicon 29 millimeter powered stapler 4. Flexible sigmoidoscopy demonstrates no leak 5. Double docking technique performed to address mobilization of splenic flexure 6. Revision of colon anastomosis. 7. Rectal bleeding identified during procedure from hemorrhoids 8. Intra-abdominal fat including moderate transverse mesocolon. INDICATIONS: The patient is a 63-year-old male with history of recurrent rectal and GI bleeding from severe diverticulitis. Cardiac risk assessment was obtained. Optimization prior to surgery including high-protein low-carb diet was utilized. Surgical intervention was described. Benefits and risks, including infection, bowel injury, ureteral injury, colostomy creation and possibility for additional surgery was discussed at length. Informed consent was obtained. All questions of the patient and family were answered. DESCRIPTION: Earlier the patient had undergone a bowel prep using the enhanced colon recovery program. The patient was transferred to the operating room onto a split leg table and repositioned to modified lithotomy following intubation. A Gaona catheter was placed. The abdomen was then prepped and draped in standard sterile fashion as Ioban was placed along the abdomen to minimize any contamination of skin floor. After a timeout protocol was performed, attention was then brought to the left upper quadrant whereby a 0 degree 5 mm laparoscopic trocar entry was performed. The abdominal cavity was entered and insufflated to 15 mmHg pressure, which was tolerated well. Diagnostic laparoscopy confirmed severe phlegmon incorporating the left pelvis, lower abdominal wall. Next trocars were placed 20 cm superior from the pelvis. A 12-mm trocar was placed along the right lateral abdominal wall. A 8 mm port was placed along the right upper quadrant. Ports were placed 10 cm apart from each other including 20 cm away from the target anatomy of the left pelvis. The 5-mm port was exchanged for an 8 mm robotic port. The stapler 12-mm port was arranged along the left lateral abdominal wall. The patient was then placed in Trendelenburg position, at least 21. The robotic da Buddy XI system was primed. The robot was docked from the right side of the patient. Using atraumatic graspers and vessel sealer, the robotic system was docked and primed as described. Instruments were interchanged by the him assistant including needle milk pickup truck driver, clip olive grader, hook cautery, robotic stapler and vessel sealer. The robot stapler was prepared along the right lateral abdominal wall. Next, attention was brought to identify the sigmoid colon. To address the left pelvic phlegmon, combination of blunt including sharp dissection was performed using a hook cautery and vessel sealer. Extensive and careful dissection was performed without injury to the posterior wall of the bladder. Once the phlegmon was encountered and decompressed with stool identified, at least 2 mL of clear white fluid was identified consistent with previous intrapelvic abscess. Extensive lysis of adhesions occurred well over 4 hours was performed to avoid injury to the ureter, bladder as described. The sigmoid mesentery was mobilized using a vessel sealer. Using multiple fires of the robot stapler 60 mm black and green loads, the descending colon was divided. Mobilization of the colon was performed to the pelvic brim along the sacral promontory. The mesentery of the sigmoid colon was mobilized towards the descending colon using a vessel sealer. Next, the top of the rectum was divided using robotic stapler 60 mm black and green loads. The rest of the sigmoid colon mesentery was mobilized using vessel sealer. The sigmoid colon and mesentery was moderately bulky from recurrent inflammation and infection causing malformation and near complete obstruction of an omega loop. The proximal sigmoid colon was inferior to the top of the rectum and scarred. Additionally, the sigmoid colon was mobilized onto the colon to minimize injury to the ureters. With a significant resection, mobilization of the splenic flexure was proposed. The robot was undocked. The patient was placed in left tilt 7 degrees and reverse Trendelenburg 7. The robot was docked with attention to the upper abdomen. The descending colon including splenic flexure was mobilized using vessel sealer including blunt dissection. The descending colon was medialized towards the abdomen. The colon was dissected from the retroperitoneum. These maneuvers allowed additional length to create the anastomosis. Once mobilization of splenic flexure was completed. The robot was again undocked. The patient was positioned in steep Trendelenburg position for pelvic surgery. The robot was docked. I went to the foot of the bed for selection of a sizer. A colorectal colon anastomosis with a powered 29 mm circular stapler was selected after using a sizer along the rectum. For the proximal sigmoid colon, a 29-mm anvil was placed after reating a colotomy then closed using a stapler at the distal end. The robot arms were temporarily undocked. A stapler was entered along the rectum and mated to the anvil for 1 minute. The anastomosis was created. Moderate tension was identified in the anastomosis was resected. A tension-free anastomosis was placed after resecting the prior anastomosis. The donuts were thick on the rectum side and then on the colon side. I then performed a bedside flexible sigmoidoscopy where no leaks or defects were confirmed as the him assistant placed normal saline along the pelvis. I re-scrubbed into the case. Irrigation fluid was suctioned from the abdomen. The robot was undocked. All needles were removed from the abdominal cavity. Abdominal cavity was com pletely dry. Via the stapler site 12-mm left upper quadrant, the resected colon was brought out through the 12 mm trocar of the left upper quadrant after widening the skin incision to 4-cm. The fascial defect was oversewn using 0 Vicryl and a George Bates. All incisions were copiously irrigated using dilute normal saline and hydrogen peroxide mixture. Next all pneumoperitoneum was evacuated from the abdominal cavity. The 8-mm trocar sites were reapproximated using 4-0 Monocryl in an interrupted subcuticular fashion. Local anesthetic was infiltrated to all wounds for postop analgesia. All incisions were also cleansed with diluted hydrogen peroxide. An Optifoam surgical dressing was placed over the colon extraction site. Dermabond glue was applied to the rest of the skin incisions. The patient was extubated successfully. The patient was transferred to the postanesthesia care unit in stable condition. COMPLEXITY STATEMENT: Extensive lysis of adhesions performed over 4+ hrs for large and complicated phlegmon involving the ascendincolon with careful dissection performed using hook cautery and vessel sealer including blunt dissection.
--- NOTE | 2024-03-17 23:20 | P.PN ---
Subjective Progress Note Date: 12/20/23 CHIEF COMPLAINT: Complicated diverticulitis HISTORY OF PRESENT ILLNESS: The patient is a 63-year-old male status post over 4 hours extensive lysis of adhesions with mobilization of splenic flexure, sigmoid colectomy low anterior resection. Gaona catheter is present. ROS: No reports of nausea and vomiting. No bowel movements. No fevers or chills. No new chest pain. No productive sputum PHYSICAL EXAM: VITAL SIGNS: Reviewed CONSTITUTIONAL: Well developed and in no acute distress. EYES: Conjuctivae without sclera icterus. Extraocular movements grossly intact. HEAD, EARS, NOSE, THROAT: Moist buccal mucosa. Head is atraumatic, normocephalic. Hears conversational speech. No nasal drainage. RESPIRATORY: Non-labored respirations and equal bilateral excursions. CARDIOVASCULAR: Palpable 2+ radial pulses. ABDOMEN: Dressings clean dry intact. MUSCULOSKELETAL: No gross deformity of the lower extremities noted. No clubbing. No cyanosis. SKIN: Good skin turgor. Well perfused. NEUROLOGIC: Cranial nerves II through XII grossly intact. No focal or lateralizing signs. PSYCH: Appropriate affect. Alert and oriented to person, place and time. CLINICAL LABS: Reviewed. ASSESSMENT: 1. Complicated diverticulitis. 2. Atrial fibrillation. PLAN: 1. Continue Gaona. 2. Continue hospitalization through the weekend due to long surgery and high risk for atrial fibrillation 3. Overall, expect bleeding from rectum due to hemorrhoids.
--- NOTE | 2024-03-17 23:23 | P.DS ---
Providers Date of admission: 12/18/23 10:00 Expected date of discharge: 12/22/23 Attending physician: Fawn Bailey Primary care physician: Stated None Hospital Course: POSTOPERATIVE DIAGNOSES: 1. Severe descending and sigmoid diverticulitis with localized perforation 2. Diabetes type 2, [id number] 3. Ischemic cardiomyopathy 4. Hypertensive heart disease 5. Atrial fibrillation 6. Chronic anticoagulation 7. Gastrointestinal bleeding due to diverticulitis 8. Proctitis 9. Morbid obesity due to excess calories, BMI 35 10. History of myocardial infarction 11. Mitral valve prolapse 12. Pelvic adhesions 13. Rectal bleeding from hemorrhoids COURSE: The patient is a 63-year-old male admitted for complicated descending including sigmoid diverticulitis with localized perforation. He had underwent robotic colectomy with extensive lysis of adhesions, takedown of phlegmon, mobilization of splenic flexure over 4+ hours. Patient is on chronic blood thinners due to atrial fibrillation. Due to patient's multiple comorbidities continued hospital observation was advised. Patient reported he was feeling well. He was tolerating diet. Pain was well-controlled. He was passing flatus. Overall patient was not anemic following surgery. Patient told to hold his Coumadin for 7 days postop until 12/26/2023. Close outpatient follow-up was described. Patient verbalized instructions. Procedures: OPERATION: 1. Robotic-assisted daVinci Xi laparoscopic extensive lysis of adhesions over 4 hours for takedown of left pelvic phlegmon 2. Robotic-assisted daVinci Xi laparoscopic with sigmoid colectomy and low anterior resection using 29 mm EEA non-powered stapler 3. Robotic-assisted daVinci Xi laparoscopic mobilization of splenic flexure 4. Intraoperative colonoscopy for flexible sigmoidoscopy Anesthesia: GETA, local, epidural Estimated Blood Loss (ml): 100 Pathology: other (Sigmoid colon) Condition: stable Disposition: floo COMPLICATIONS: None. Operative Findings: 1. Severe pelvic adhesions due to previously contained perforated sigmoid diverticulitis 2. Severe phlegmon reaction of the descending colon requiring extensive and careful lysis of adhesions 3. Anastomosis performed using Ethicon 29 millimeter powered stapler 4. Flexible sigmoidoscopy demonstrates no leak 5. Double docking technique performed to address mobilization of splenic flexure 6. Revision of colon anastomosis. 7. Rectal bleeding identified during procedure from hemorrhoids 8. Intra-abdominal fat including moderate transverse mesocolon. Patient Condition at Discharge: Good Plan - Discharge Summary New Discharge Prescriptions: No Action metFORMIN HCL [Glucophage] 750 mg PO BID Atorvastatin Calcium [Lipitor] 20 mg PO HS Warfarin [Coumadin] 5 mg PO MOFR Warfarin [Coumadin] 10 mg PO SUTUTHSA HYDROcodone/APAP 5-325MG [[place] 5-325] 1 - 2 tab PO Q4-6H PRN #84 tab PRN Reason: Pain Metoprolol Succinate [Metoprolol Succinate ER] 12.5 mg PO BID Amoxic-Pot Clav 875-125Mg [Augmentin Xr 875-125] 1 each PO Q12HR #30 tablet Dapagliflozin Propanediol [Farxiga] 10 mg PO QAM Discharge Medication List Atorvastatin Calcium [Lipitor] 20 mg PO HS 01/05/18 [History] Warfarin [Coumadin] 5 mg PO MOFR 01/05/18 [History] Warfarin [Coumadin] 10 mg PO SUTUTHSA 01/05/18 [History] metFORMIN HCL [Glucophage] 750 mg PO BID 01/05/18 [History] HYDROcodone/APAP 5-325MG [[place] 5-325] 1 - 2 tab PO Q4-6H PRN #84 tab 01/14/18 [Rx] Dapagliflozin Propanediol [Farxiga] 10 mg PO QAM 05/07/23 [History] Metoprolol Succinate [Metoprolol Succinate ER] 12.5 mg PO BID 05/07/23 [History] Amoxic-Pot Clav 875-125Mg [Augmentin Xr 875-125] 1 each PO Q12HR #30 tablet 07/30/23 [Rx] Discharge Disposition: HOME SELF-CARE
== END 2023-12-22 17:34 | disposition home or self-care (01) | DRG 331 ==
LOC: ORWHC2ENDO 09:00 → 4SSUR 10:00 → UNDOADMOB 10:00 → 4SSUR 10:00
PROVIDERS: ADMIT Surgery Plastic and Reconstructive Surgery; ATTEND Surgery Plastic and Reconstructive Surgery
PROC: 3E0H8KZ Introduction of Other Diagnostic Substance into Lower GI, Via Natural or Artificial Opening Endoscopic (ICD-10-PCS; 2023-12-18)
PROC: 0DTN4ZZ Resection of Sigmoid Colon, Percutaneous Endoscopic Approach (ICD-10-PCS; 2023-12-19)
PROC: 0DNW4ZZ Release Peritoneum, Percutaneous Endoscopic Approach (ICD-10-PCS; 2023-12-19)
PROC: 8E0W4CZ Robotic Assisted Procedure of Trunk Region, Percutaneous Endoscopic Approach (ICD-10-PCS; 2023-12-19)
PROC: 0DJD8ZZ Inspection of Lower Intestinal Tract, Via Natural or Artificial Opening Endoscopic (ICD-10-PCS; principal; 2023-12-19 11:50)
DX: K57.21 Diverticulitis of large intestine with perforation and abscess with bleeding (principal); I10 Essential (primary) hypertension; E11.9 Type 2 diabetes mellitus without complications; I48.0 Paroxysmal atrial fibrillation; Z91.013 Allergy to seafood; E66.01 Morbid (severe) obesity due to excess calories; K66.0 Peritoneal adhesions (postprocedural) (postinfection); K21.9 Gastro-esophageal reflux disease without esophagitis; E78.5 Hyperlipidemia, unspecified; I25.5 Ischemic cardiomyopathy; I34.1 Nonrheumatic mitral (valve) prolapse; I25.2 Old myocardial infarction; K64.0 First degree hemorrhoids; Z68.35 Body mass index [BMI] 35.0-35.9, adult; Z79.01 Long term (current) use of anticoagulants; Z79.84 Long term (current) use of oral hypoglycemic drugs; Z79.899 Other long term (current) drug therapy
CPT/HCPCS: 45378; 64999; 80053; 85025; 85610; 85730; 88304; 88309; 93005